=== PATIENT | male | born 1955 | race Two or more races ===

== ENCOUNTER 2018-11-11 19:28 | Inpatient (IN) | payer OTHER ==
[~2018-11-11] VITALS: Ht 172.7 cm; Wt 71.7 kg
[2018-11-11] MEDS ORDERED: ALTACE10 MG (20:01)
[2018-11-11] MEDS ORDERED: LIPITOR20 MG (20:01)
[2018-11-11] MEDS ORDERED: D3 + K2 DOTS 11 EACH (20:02)
== END 2018-11-13 11:10 | disposition home or self-care (01) | DRG 392 ==
LOC: ER 19:28 → SEC-K 11-12 08:39 → MEDJ 11-12 11:34
PROVIDERS: ADMIT Internal Medicine
PROC: BW21Y0Z Computerized Tomography (CT Scan) of Abdomen and Pelvis using Other Contrast, Unenhanced and Enhanced (ICD-10-PCS; principal; 2018-11-12)
DX: K57.32 Diverticulitis of large intestine without perforation or abscess without bleeding (principal); E86.0 Dehydration; E78.49 Other hyperlipidemia; E55.9 Vitamin D deficiency, unspecified; I10 Essential (primary) hypertension; E87.8 Other disorders of electrolyte and fluid balance, not elsewhere classified